=== PATIENT | female | born 1945 | race Caucasian/White ===

== ENCOUNTER 2018-02-04 18:41 | Emergency (ER) | payer MEDICARE, OTHER, MEDICAID ==
[~2018-02-04] VITALS: Ht 172.7 cm; Wt 80.0 kg
[2018-02-04] MEDS ORDERED: DOPamine 800 MG/500 ML INJ 500 ML IV ONE (18:42)
[2018-02-04] MEDS ORDERED: EPINEPHrine HCL (1:10,000) 1 MG/10 ML SYRINGE IV ONE (18:42)
[2018-02-04] MEDS ORDERED: NOREPINEPHRINE 4 MG/4 ML AMP IV ONE (18:42)
[2018-02-04 18:58] VITALS: PULSE 125; RESP 26
[2018-02-04 19:00] VITALS: O2SAT 100
[2018-02-04 19:03] VITALS: BP 66/41; PULSE 109
[2018-02-04] MEDS ORDERED: SUCCINYLCHOLINE CHLORIDE 200 MG/10 ML VIAL IV PUSH ONE (19:15)
[2018-02-04] MEDS ORDERED: ETOMIDATE 20 MG/10 ML VIAL IV PUSH ONE (19:15)
[2018-02-04] MEDS ORDERED: SODIUM CHLORIDE 0.9% FLUSH 10 ML FLUSH IV FLUSH PRN (19:15)
--- NOTE | 2018-02-04 19:23 | PD ---
HPI Chief Complaint: Respiratory Distress Time Seen by Provider: 19:10 Travel History International Travel<30 days: No Contact w/Intl Traveler<30days: No Traveled to known affect area: No History of Present Illness HPI Patient arrives to the ER unresponsive. She was found in cardiopulmonary arrest. Patient is 72 years old. She arrives in [facility]. EMS reports a ventricular tachycardia en route and she received 50 J electricity leading to a sinus rhythm at 80. The patient was last seen normal yesterday. PFSH Past Medical History ?: Not Social History Tobacco Use: No Allergies-Medications (Allergen,Severity, Reaction): Coded Allergies: No Allergy Information Available (Unverified , 02/04/18) Review of Systems ROS Limitations: Clinical Condition, Intubated Physical Exam Narrative GENERAL: 72-year-old female unresponsive GCS 4 (E2, M1, V1) Vital Signs Date Time Temp Pulse Resp B/P (MAP) Pulse Ox O2 Delivery O2 Flow Rate FiO2 02/04/18 19:03 109 66/41 (49) 02/04/18 18:58 125 26 SKIN: Warm and dry. HEAD: Atraumatic. Normocephalic. EYES: Pupils equal and round. No scleral icterus. No injection or drainage. ENT: No nasal bleeding or discharge. Mucous membranes pink and moist. NECK: Trachea midline. No JVD. CARDIOVASCULAR: Palpable femoral artery pulse. RESPIRATORY: Respiratory arrest. Patient intubated upon arrival. GASTROINTESTINAL: No distention. MUSCULOSKELETAL: Extremities without clubbing, cyanosis, or edema. No obvious deformities. NEUROLOGICAL: GCS 4. Pupils equal reactive to light. PSYCHIATRIC: Unable to assess Data Data Last Documented VS Vital Signs Date Time Temp Pulse Resp B/P (MAP) Pulse Ox O2 Delivery O2 Flow Rate FiO2 02/04/18 20:06 12 Ventilator 30 02/04/18 19:03 109 Orders Orders Electrocardiogram (02/04/18 19:10) Complete Blood Count With Diff (02/04/18 19:10) Comprehensive Metabolic Panel (02/04/18 19:10) Creatine Kinase (Cpk) (02/04/18 19:10) Prothrombin Time / Inr (Pt) (02/04/18 19:10) Act Partial Throm Time (Ptt) (02/04/18 19:10) Troponin I (02/04/18 19:10) Thyroid Stimulating Hormone (02/04/18 19:10) Urinalysis - C+S If Indicated (02/04/18 19:10) Lactic Acid Sepsis Protocol (02/04/18 19:10) Arterial Blood Gas (Abg) (02/04/18 19:10) Blood Culture (02/04/18 19:10) Chest, Single Ap (02/04/18 19:10) Blood Glucose (02/04/18 19:10) Ecg Monitoring (02/04/18:10) Iv Access Insert/Monitor (02/04/18 19:10) Oximetry (02/04/18 19:10) Urinary Catheter Insert/Apply (02/04/18 19:10) Sodium Chloride 0.9% Flush (Ns Flush) (02/04/18 19:15) Drug Screen, Random Urine (02/04/18 19:10) Alcohol (Ethanol) (02/04/18 19:10) Tylenol (Acetaminophen) (02/04/18 19:10) Salicylates (Aspirin) (02/04/18 19:10) Ng Gastric Tube Insert/Monitor (02/04/18 19:10) Succinylcholine Inj (Quelicin Inj) (02/04/18 19:15) Restraints Non-Violent LEONEL.Q3H (02/04/18 19:10) Etomidate Inj (Amidate Inj) (02/04/18 19:15) Urine Culture (02/04/18 19:39) Morphine Inj (Morphine Inj) (02/04/18 21:15) Lorazepam Inj (Ativan Inj) (02/04/18 21:15) Morphine Inj (Morphine Inj) (02/04/18 21:30) Lorazepam Inj (Ativan Inj) (02/04/18 21:30) Labs Laboratory Tests Test 02/04/18 19:15 3 19:39 02/04/18 19:52 White Blood Count 21.5 TH/MM3 Red Blood Count 3.68 MIL/MM3 Hemoglobin 9.4 GM/DL Hematocrit 30.2 % Mean Corpuscular Volume 82.0 FL Mean Corpuscular Hemoglobin 25.4 PG Mean Corpuscular Hemoglobin Concent 31.0 % Red Cell Distribution Width 19.6 % Platelet Count 485 TH/MM3 Mean Platelet Volume 9.1 FL Neutrophils (%) (Auto) 91.1 % Lymphocytes (%) (Auto) 3.9 % Monocytes (%) (Auto) 4.4 % Eosinophils (%) (Auto) 0.5 % Basophils (%) (Auto) 0.1 % Neutrophils # (Auto) 19.6 TH/MM3 Lymphocytes # (Auto) 0.8 TH/MM3 Monocytes # (Auto) 0.9 TH/MM3 Eosinophils # (Auto) 0.1 TH/MM3 Basophils # (Auto) 0.0 TH/MM3 CBC Comment DIFF FINAL Differential Comment Prothrombin Time 13.2 SEC Prothromb Time International Ratio 1.3 RATIO Activated Partial Thromboplast Time 22.2 SEC Blood Urea Nitrogen 38 MG/DL Creatinine 2.79 MG/DL Random Glucose 221 MG/DL Total Protein 5.2 GM/DL Albumin 1.3 GM/DL Calcium Level 8.5 MG/DL Alkaline Phosphatase 143 U/L Aspartate Amino Transf (AST/SGOT) 406 U/L Alanine Aminotransferase (ALT/SGPT) 125 U/L Total Bilirubin 0.3 MG/DL Sodium Level 135 MEQ/L Potassium Level 4.9 MEQ/L Chloride Level 99 MEQ/L Carbon Dioxide Level 19.4 MEQ/L Anion Gap 17 MEQ/L Estimat Glomerular Filtration Rate 17 ML/MIN Lactic Acid Level 7.1 mmol/L Total Creatine Kinase 169 U/L Troponin I 0.40 NG/ML Thyroid Stimulating Hormone 3rd Gen 1.440 uIU/ML Acetaminophen Level 5.8 MCG/ML Ethyl Alcohol Level LESS THAN 3 MG/DL Urine Color YELLOW Urine Turbidity CLOUDY Urine pH 8.0 Urine Specific [place] 1.016 Urine Protein 100 mg/dL Urine Glucose (UA) NEG mg/dL Urine Ketones NEG mg/dL Urine Occult Blood TRACE Urine Nitrite NEG Urine Bilirubin NEG Urine Urobilinogen LESS THAN 2.0 MG/DL Urine Leukocyte Esterase LARGE Urine RBC 20 /hpf Urine WBC /hpf Urine Bacteria MANY /hpf Urine Hyaline Casts 12 /lpf Microscopic Urinalysis Comment CATH-CULTURE IND Blood Gas Puncture Site GARRY Blood Gas Patient Temperature 98.6 Blood Gas HCO3 17 mmol/L Blood Gas Base Excess -6.3 mmol/L Blood Gas Oxygen Saturation 99 % Arterial Blood pH 7.49 Arterial Blood Partial Pressure CO2 22 mmHg Arterial Blood Partial Pressure O2 481 mmHG Arterial Blood Oxygen Content 13.6 Vol % Arterial Blood Carboxyhemoglobin 0.9 % Arterial Blood Methemoglobin 0.4 % Blood Gas Hemoglobin 8.9 G/DL Oxygen Delivery Device VENTILATOR Blood Gas Ventilator Setting SEE COMMENT Blood Gas Inspired Oxygen 100 % MDM Medical Decision Making Medical Screen Exam Complete: Yes Emergency Medical Condition: Yes Medical Record Reviewed: Yes Differential Diagnosis Cardiopulmonary arrest, coronary occlusion, multiorgan dysfunction sundrome Narrative Course CBC & BMP Diagram 02/04/18 19:15 Total Protein 5.2 L, Albumin 1.3 L, Calcium Level 8.5, Alkaline Phosphatase 143 H, Aspartate Amino Transf (AST/SGOT) 406 H, Alanine Aminotransferase (ALT/SGPT) 125 H, Total Bilirubin 0.3 EKG shows atrial fibrillation at a rate of 124 Last Impressions Chest X-Ray 02/04/18 1910 Signed Impressions: Service Date/Time: Sunday, February 04, 2018 19:26 - CONCLUSION: Appropriate position of the endotracheal tube and right internal jugular central venous catheter. Mild consolidation and small pleural effusion at the left base. Henry Franz MD The family arrived and informed of the providers the patient is a DNR. The patient's daughter is the legal surrogate and reports DNR paperwork has been completed and has it with her. She requests that we place for measures be withdrawn. Case coordinated with workers compensation adjuster Dr. Figueroa. At 910pm the patient was observed to be in ventricular tachycardia the patient denied pain at that point. Critical Care Narrative Aggregate critical care time was 45 minutes. Time to perform other separately billable procedures was not included in the critical care time. My time did not include minutes spent treating any other patients simultaneously or on activities that did not directly contribute to the patient's treatment. The services I provided to this patient were to treat and/or prevent clinically significant deterioration that could result in: asphyxiation, pain and suffering I provided critical care services requiring my management, as noted below: Chart data review, documentation time, medication orders and management, vital sign assessments/reviewing monitor data, ordering and reviewing lab tests, ordering and interpreting/reviewing x-rays and diagnostic studies, care of the patient and discussion of the patient with the admitting physicians. Procedures Procedure Narrative CENTRAL VENOUS LINE: The site was prepped with Betadine and sterilely draped. It was infiltrated with 1% lidocaine plain. The deep vein was cannulated using normal Seldinger technique. A triple lumen central line was placed in the internal jugular site and secured with simple interrupted suture. The site was sterilely dressed. The patient tolerated the procedure well. After the risks and benefits were discussed the following procedure was performed: INTUBATION: The patient was put in optimal position for the procedure. Rapid sequence intubation was initiated by me using 20 milligrams of etomidate IV and 100 milligrams of succhinylchonline IV. The patient was intubated with a 7-5 cuffed endotracheal tube. Tube placement was confirmed by visualization of the tube and balloon passing through the cords, capnometry and subsequent chest x-ray. Breath sounds were equal and well aerated bilaterally postintubation. No breath sounds over stomach. Patient tolerated procedure well. Diagnosis Primary Impression: Cardiopulmonary arrest Additional Impressions: Respiratory failure Qualified Codes: J96.90 - Respiratory failure, unspecified, unspecified whether with hypoxia or hypercapnia Admitting Information Admitting Physician Requests: Jason Agustin MD Feb 04, 2018 19:23
--- NOTE | 2018-02-04 19:42 | RADRPT ---
EXAM DATE/TIME: 02/04/2018 19:26 [facility] COMPARISON: No previous studies available for comparison. INDICATIONS : Post intubation. MEDICAL HISTORY : None. SURGICAL HISTORY : None. ENCOUNTER: Initial ACUITY: 1 day PAIN SCORE: Non-responsive. LOCATION: Bilateral chest FINDINGS: Mild consolidation and small pleural effusion seen at the left lung base. Right lung clear. No pneumo thorax on either side. Heart size within normal limits. Patient is intubated. Endotracheal tube tip is approximately 3 cm above the leila. There is a right IJ central venous catheter with tip in the right atrium. CONCLUSION: Appropriate position of the endotracheal tube and right internal jugular central venous catheter. Mil d consolidation and small pleural effusion at the left base. Henry Franz MD on February 04, 2018 at 19:40 Board Certified Radiologist. This report was verified electronically.
[2018-02-04 19:58] LABS: INTERNATIONAL NORMALIZED RATIO 1.3 RATIO; PROTHROMBIN TIME - PATIENT 13.2 SEC (9.8-11.6)
[2018-02-04 20:04] LABS: ALBUMIN 1.3 GM/DL (3.4-5.0); AST (GOT) 406 U/L (15-37); BICARBONATE 19.4 MEQ/L (21.0-32.0); BLOOD UREA NITROGEN 38 MG/DL (7-18); CALCIUM 8.5 MG/DL (8.5-10.1); CHLORIDE 99 MEQ/L (98-107); CREATININE 2.79 MG/DL (0.50-1.00); GLOMERULAR FILTRATION RATE 17 ML/MIN (>89); GLUCOSE,RANDOM 221 MG/DL (74-106); SODIUM (NA) 135 MEQ/L (136-145)
[2018-02-04 20:05] LABS: ALT (GPT) 125 U/L (10-53)
[2018-02-04 20:06] VITALS: RESP 12
[2018-02-04 20:15] LABS: ACETAMINOPHEN 5.8 MCG/ML (10.0-30.0); ALKALINE PHOSPHATASE 143 U/L (45-117); TOTAL BILIRUBIN ADULT 0.3 MG/DL (0.2-1.0); TOTAL PROTEIN 5.2 GM/DL (6.4-8.2)
[2018-02-04 20:17] LABS: AUTOMATED NEUTROPHIL # 19.6 TH/MM3 (1.8-7.7); BASOPHIL % 0.1 % (0.0-2.0); EOSINOPHIL # 0.1 TH/MM3 (0-0.4); EOSINOPHIL % 0.5 % (0.0-4.0); HEMATOCRIT 30.2 % (35.0-46.0); HEMOGLOBIN 9.4 GM/DL (11.6-15.3); LYMPH % 3.9 % (9.0-44.0); LYMPHOCYTE # 0.8 TH/MM3 (1.0-4.8); MEAN CORPUSCULAR HEMOGLOBIN 25.4 PG (27.0-34.0); MEAN PLATELET VOLUME 9.1 FL (7.0-11.0); MONO % 4.4 % (0.0-8.0); MONOCYTE # 0.9 TH/MM3 (0-0.9); NEUT % 91.1 % (16.0-70.0); PLATELET COUNT 485 TH/MM3 (150-450); RED BLOOD COUNT 3.68 MIL/MM3 (4.00-5.30); RED CELL DISTRIBUTION WIDTH 19.6 % (11.6-17.2); WHITE BLOOD COUNT 21.5 TH/MM3 (4.0-11.0)
[2018-02-04 20:18] LABS: LACTIC ACID SEPSIS PROTOCOL 7.1 mmol/L (0.4-2.0)
[2018-02-04 20:45] LABS: BACTERIA, URINE MANY /hpf; BILIRUBIN, URINE NEG (NEG); BLOOD, URINE TRACE (NEG); GLUCOSE,URINE NEG (NEG); HYALINE CAST, URINE 12 /lpf (RARE); KETONE, URINE NEG (NEG); NITRITE,URINE NEG (NEG); URINE COLOR YELLOW (YELLW/STRAW); URINE LEUKOCYTE ESTERASE LARGE (NEG)
[2018-02-04] MEDS ORDERED: LORazepam 2 MG/ML VIAL IV PUSH ONE (21:15)
[2018-02-04] MEDS ORDERED: MORPHINE SULFATE 8 MG/ML INJ IV PUSH ONE (21:15)
--- NOTE | 2018-02-04 21:25 | HHI.HP ---
[facility] Service Critical Care Medicine Primary Care Physician Lyndon Saldivar MD Admission Diagnosis Diagnosis: (1) V-tach Diagnosis: Principal (2) Respiratory failure, acute Diagnosis: Principal (3) Shock, cardiogenic Diagnosis: Principal (4) Cardiac arrest Travel History International Travel<30 Days: No Contact w/Intl Traveler <30 Da: No Traveled to Known Affected Are: No History of Present Illness 72 year-old female with past medical history diabetes, hypertension, hyperlipidemia, hypothyroidism bipolar disorder, stroke with left hemiparesis. She presented from [facility] after she was found unresponsive. She was in V. tach and was cardioverted with 50 J. Her heart rate was then in the 180s to 190s. She was intubated and central venous line was placed in the emergency department. Her daughter arrived and states that she is patient's healthcare surrogate and the patient had a prior DNR on while at [facility] and that she wishes for patient to be kept comfortable and transitioned to comfort measures. Patient was actually alert despite profound shock and indicated that she was not pain but wanted life sustaining treatment discontinued. Past Family Social History Allergies: Coded Allergies: No Allergy Information Available (Unverified , 02/04/18) Past Medical History Stroke Bipolar disorder Hypothyroidism Pressure ulcers Type 2 diabetes mellitus Hyperlipidemia Past Surgical History Right hip surgery Reported Medications Unable to obtain from patient due to clinical condition Reviewed MAR from [facility] Family History Unable to obtain from patient due to clinical condition Social History Unable to obtain from patient due to clinical condition Physical Exam Vital Signs Vital Signs Date Time Temp Pulse Resp B/P (MAP) Pulse Ox O2 Delivery O2 Flow Rate FiO2 02/04/18 20:06 12 Ventilator 30 02/04/18 19:03 109 66/41 (49) 02/04/18 18:58 125 26 Physical Exam GENERAL: Elderly very pale appearing female who is orotracheally intubated. SKIN: Skin is cool and dry HEAD: Atraumatic. Normocephalic. EYES: Pupils equal and round. No scleral icterus. No injection or drainage. ENT: No nasal bleeding or discharge. Mucous membranes pink and moist. NECK: Trachea midline. No JVD. CARDIOVASCULAR: Irregular. No murmurs rubs or gallops. During examination she went into wide complex tachycardia and became unresponsive RESPIRATORY: Breath sounds bilaterally with bilateral rhonchi GASTROINTESTINAL: Abdomen soft, colostomy in place with air in the bag MUSCULOSKELETAL: Extremities without clubbing, cyanosis, or edema. NEUROLOGICAL: When I raised initially arrived to the room her eyes were open and she nodded shook her head in communication with her daughter. During my assessment she went into ventricular tachycardia and became unresponsive. She hasn't indicated to her daughter that she wished to transition to comfort measures Laboratory Laboratory Tests Test 02/04/18 19:15 02/04/18 19:39 02/04/18 19:52 White Blood Count 21.5 Red Blood Count 3.68 Hemoglobin 9.4 Hematocrit 30.2 Mean Corpuscular Volume 82.0 Mean Corpuscular Hemoglobin 25.4 Mean Corpuscular Hemoglobin Concent 31.0 Red Cell Distribution Width 19.6 Platelet Count 485 Mean Platelet Volume 9.1 Neutrophils (%) (Auto) 91.1 Lymphocytes (%) (Auto) 3.9 Monocytes (%) (Auto) 4.4 Eosinophils (%) (Auto) 0.5 Basophils (%) (Auto) 0.1 Neutrophils # (Auto) 19.6 Lymphocytes # (Auto) 0.8 Monocytes # (Auto) 0.9 Eosinophils # (Auto) 0.1 Basophils # (Auto) 0.0 CBC Comment DIFF FINAL Differential Comment Prothrombin Time 13.2 Prothromb Time International Ratio 1.3 Activated Partial Thromboplast Time 22.2 Blood Urea Nitrogen 38 Creatinine 2.79 Random Glucose 221 Total Protein 5.2 Albumin 1.3 Calcium Level 8.5 Alkaline Phosphatase 143 Aspartate Amino Transf (AST/SGOT) 406 Alanine Aminotransferase (ALT/SGPT) 125 Total Bilirubin 0.3 Sodium Level 135 Potassium Level 4.9 Chloride Level 99 Carbon Dioxide Level 19.4 Anion Gap 17 Estimat Glomerular Filtration Rate 17 Lactic Acid Level 7.1 Total Creatine Kinase 169 Troponin I 0.40 Thyroid Stimulating Hormone 3rd Gen 1.440 Acetaminophen Level 5.8 Ethyl Alcohol Level LESS THAN 3 Urine Color YELLOW Urine Turbidity CLOUDY Urine pH 8.0 Urine Specific [place] 1.016 Urine Protein 100 Urine Glucose (UA) NEG Urine Ketones NEG Urine Occult Blood TRACE Urine Nitrite NEG Urine Bilirubin NEG Urine Urobilinogen LESS THAN 2.0 Urine Leukocyte Esterase LARGE Urine RBC 20 Urine WBC Urine Bacteria MANY Urine Hyaline Casts 12 Microscopic Urinalysis Comment CATH-CULTURE IND Blood Gas Puncture Site GARRY Blood Gas Patient Temperature 98.6 Blood Gas HCO3 17 Blood Gas Base Excess -6.3 Blood Gas Oxygen Saturation 99 Arterial Blood pH 7.49 Arterial Blood Partial Pressure CO2 22 Arterial Blood Partial Pressure O2 481 Arterial Blood Oxygen Content 13.6 Arterial Blood Carboxyhemoglobin 0.9 Arterial Blood Methemoglobin 0.4 Blood Gas Hemoglobin 8.9 Oxygen Delivery Device VENTILATOR Blood Gas Ventilator Setting SEE COMMENT Blood Gas Inspired Oxygen 100 Date/Time Source Procedure Growth Status 02/04/18 19:15 Blood Peripheral Aerobic Blood Culture Pending Received 02/04/18 19:15 Blood Peripheral Anaerobic Blood Culture Pending Received 02/04/18 19:39 Urine Catheterized Urine Urine Culture Pending Received Result Diagram: 02/04/18191402/04/181914 Caprini VTE Risk Assessment Caprini VTE Risk Assessment: Mod/High Risk (score >= 2) Caprini Risk Assessment Model Point Value = 1 Point Value = 2 Point Value = 3 Point Value = 5 Age 41-60 Minor surgery BMI > 25 kg/m2 Swollen legs Varicose veins or History of unexplained or recurrent spontaneous Oral contraceptives or hormone replacement Sepsis (< 1 month) Serious lung disease, including pneumonia (< 1 month) Abnormal pulmonary function Acute myocardial infarction Congestive heart failure (< 1 month) History of inflammatory bowel disease Medical patient at bed rest Age 61-74 Arthroscopic surgery Major open surgery (> 45 min) Laparoscopic surgery (> 45 min) Malignancy Confined to bed (> 72 hours) Immobilizing plaster cast Central venous access Age >= 75 History of VTE Family history of VTE Factor V Leiden Prothrombin [id number] Lupus anticoagulant Anticardiolipin antibodies Elevated serum homocysteine Heparin-induced thrombocytopenia Other congenital or acquired thrombophilia Stroke (< 1 month) Elective arthroplasty Hip, pelvis, or leg fracture Acute spinal cord injury (< 1 month) Prophylaxis Regimen Total Risk Factor Score Risk Level Prophylaxis Regimen 0-1 Low Early ambulation 2 Moderate Order ONE of the following: *Sequential Compression Device (SCD) *Heparin 5000 units SQ BID 3-4 Higher Order ONE of the following medications: *Heparin 5000 units SQ TID *Enoxaparin/Lovenox 40 mg SQ daily (WT < 150 kg, CrCl > 30 mL/min) *Enoxaparin/Lovenox 30 mg SQ daily (WT < 150 kg, CrCl > 10-29 mL/min) *Enoxaparin/Lovenox 30 mg SQ BID (WT < 150 kg, CrCl > 30 mL/min) AND/OR *Sequential Compression Device (SCD) 5 or more Highest Order ONE of the following medications: *Heparin 5000 units SQ TID (Preferred with Epidurals) *Enoxaparin/Lovenox 40 mg SQ daily (WT < 150 kg, CrCl > 30 mL/min) *Enoxaparin/Lovenox 30 mg SQ daily (WT < 150 kg, CrCl > 10-29 mL/min) *Enoxaparin/Lovenox 30 mg SQ BID (WT < 150 kg, CrCl > 30 mL/min) AND *Sequential Compression Device (SCD) Assessment and Plan Problem List: (1) NSTEMI (non-ST elevated myocardial infarction) ICD Code: I21.4 - Non-ST elevation (NSTEMI) myocardial infarction Status: Acute (2) Ischemic hepatitis ICD Code: K75.9 - Inflammatory liver disease, unspecified Status: Acute (3) Cardiac arrest ICD Code: I46.9 - Cardiac arrest, cause unspecified Status: Acute (4) Shock, cardiogenic ICD Code: R57.0 - Cardiogenic shock Status: Acute (5) Respiratory failure, acute ICD Code: J96.00 - Acute respiratory failure, unspecified whether with hypoxia or hypercapnia Status: Acute (6) V-tach ICD Code: I47.2 - Ventricular tachycardia Status: Acute (7) Hypothyroidism ICD Code: E03.9 - Hypothyroidism, unspecified Assessment and Plan Ventricular tachycardia Stroke Bipolar disorder Hypothyroidism Pressure ulcers Type 2 diabetes mellitus Hyperlipidemia NSTEMI Acute kidney injury Lactic acidemia Transaminitis ? Ischemic hepatopathy prison patient with ventricular tachycardia, multiple comorbidities and now with profound shock and multiorgan dysfunction. Her condition is terminal. Reportedly patient has previously indicated a desire to be DNR. She has designated her daughter Danielle Nayak as her healthcare surrogate. She has indicated nonverbally that she wishes to be removed from life support. Her daughter would like to proceed with transition to comfort measures. Ordering comfort medications including morphine and Ativan. Vasopressor drips discontinued. When patient appeared comfortable endotracheal tube was removed. ACCESS: R IJ Central venous line placed and emergency department Discussed with Dr. Olivera Level 3 H and P Problem Qualifiers (1) Respiratory failure, acute: Qualified Codes: J96.01 - Acute respiratory failure with hypoxia Shruti Figueroa MD Feb 04, 2018 21:25
[2018-02-04] MEDS: LORazepam 2 MG/ML VIAL IV PUSH PRN ×9 (21:34→23:52)
[2018-02-04] MEDS: MORPHINE SULFATE 8 MG/ML INJ IV PUSH PRN ×9 (21:34→23:52)
[2018-02-04 21:56] VITALS: O2SAT 94
[2018-02-05] MEDS: MORPHINE SULFATE 8 MG/ML INJ IV PUSH PRN ×4 (00:08→01:07)
[2018-02-05] MEDS: LORazepam 2 MG/ML VIAL IV PUSH PRN ×4 (00:09→01:07)
--- NOTE | 2018-02-05 14:32 | EKG ---
Date Performed: 02/04/2018 Time Performed: 19:36:13 PTAGE: 72 years EKG: SUPRAVENTRICULAR TACHYCARDIA THE ETIOLOGY CANNOT BE DETERMINED BECAUSE OF THE BASELINE JUJU FACT A REPEAT TRACING IS ADVISED MARKED LEFT AXIS DEVIATION PATTERN CONSISTENT WITH PULMONARY DISEASE RIGHT BUNDLE BRANCH BLOCK ABNORMAL ECG NO PREVIOUS TRACING DOCTOR: Trini Weeks Interpretating Date/Time 02/05/2018 14:31:19
== END 2018-02-05 03:09 | disposition expired ==
LOC: NEPE 18:41 → UNDOADMIN 21:42 → NEDA 21:42 → NEPE 02-05 03:09
DX: I46.9 Cardiac arrest, cause unspecified (principal); J96.90 Respiratory failure, unspecified, unspecified whether with hypoxia or hypercapnia; I45.10 Unspecified right bundle-branch block; I47.1 Supraventricular tachycardia; N39.0 Urinary tract infection, site not specified; B96.89 Other specified bacterial agents as the cause of diseases classified elsewhere; R78.81 Bacteremia; B95.8 Unspecified staphylococcus as the cause of diseases classified elsewhere; B95.4 Other streptococcus as the cause of diseases classified elsewhere; E03.9 Hypothyroidism, unspecified; K75.89 Other specified inflammatory liver diseases; E11.9 Type 2 diabetes mellitus without complications; F31.9 Bipolar disorder, unspecified; I10 Essential (primary) hypertension; E78.5 Hyperlipidemia, unspecified
CPT/HCPCS: 31500; 36556; 36620; 51702; 71045; 80053; 80307; 81001; 82550; 82805; 83605; 84443; 84484; 85025; 85610; 85730; 86403; 87040; 87086; 87205; 93005; 96374; 96375; 96376; 99291; J0171; J0330; J1265; J2060; J2270